=== PATIENT | female | born 1975 | race Caucasian/White ===

== ENCOUNTER 2025-02-22 01:55 | Day surgery (SDC) | payer OTHER, SELFPAY ==
[2025-02-10 14:03] VITALS: BMI 24.0
--- NOTE | 2025-02-10 14:11 | PC.NURSE ---
Report to the Outpatient Waiting Room, entrance under the green pavilion located off [facility], at time _0900_ on date _[id number]_. Planned Procedure Time: _1100_.? Time changes happen often and if your time is changed the preop area will call you the afternoon before. - You and your visitor will be asked to self-screen and do not enter if you have any COVID symptoms. Please call surgeon if you need to reschedule. - A mask is optional within the hospital at this time. Patients may have clear liquids (water, carbonated beverages, clear teas, apple juice) until 3 hours prior to surgery with a maximum of 20 ounces. - No food from midnight until time of surgery and no smoking, or chewing tobacco (or any form of nicotine). No chewing gum, candy or mints. Take only the following medications with a SIP of water on the morning of surgery: ___None DO NOT STOP ANY OF YOUR OTHER PRESCRIPTION MEDICATIONS PRIOR TO SURGERY EXCEPT THE FOLLOWING Hold all vitamins and supplements for 3 days per anesthesiologist. Medications to discontinue per physician Date to take last dose Please no make-up, nail vatican citizen, hairspray, perfume, deodorant, or body powder the day of surgery.? No jewelry (including any body piercings) or valuables the day of surgery, leave them at home.? Please take a shower or bath the night before, or the morning of, surgery with an antibacterial soap.? Wear comfortable, loose fitting clothing.? - Jewelry must be removed prior to entering the operating room.? Rings and piercings that are not removed may be cut off. - The hospital will not accept responsibility for valuables.? - Please leave all valuables, including medications, at home the day of surgery. If you are going home after surgery, a licensed cross country truck driver must drive you home.? - NO public transportation without another adult if you receive anesthesia. - We recommend that an adult stay with you for 24 hours following discharge. - We also recommend that you do not drive, make important decision, drink alcoholic beverages, or take any drugs that were not prescribed by your health care provider for at least 24 hours after your discharge time. Follow any additional instructions given to you from your surgeon. Telephone instructions given to __Janine__and asked if any additional questions and then verbalized understanding. Patient advised to call surgeon office or pre surgery nurse liaison [phone] if any additional questions.
--- OUTSIDE RECORDS SUMMARY | 2025-02-22 01:58 | XMS_ITS | Encounter Summary ---
Author Organization [facility] Address [address] [facility] [place] [address] Care Team Providers Care Curator Name Role Phone Tj Aguilar MD Primary Care Provider [phone] Reason for Visit * Reason Onset Date Comments MEDICATION REFILL 02/24/2019 Encounter Details Date Type Department Care Team (Late Contact Info) Description 02/24/2019 Refill [facility] [address] [place] [address] Noel Toscano MD [address] [place] [address] [address] [place] [id number] MEDICATION REFILL Social History Tobacco Use Types Packs/Day Years Used Date Smoking Tobacco: Former Cigarettes Q uit: 08/19/2003 Smokeless Tobacco: Never Alcohol Use Standard Drinks/Week Comments No 0 (1 standard drink = 0.6 oz pur e alcohol) Sex and Gender Information Value Date Recorded Sex Assigned at Female 03/26/2022 10:06 AM CDT Gender Identity Female 03/26/2022 10:06 AM CDT Sexual Orientation Straight 03/26/2022 10 :06 AM CDT documented as of this encounter Plan of Treatment Upcoming Encounters Date Type Department Care Team (Late Contact Info) Description 06/15/2025 2:40 PM CDT Office Visit [facility] - Rheumatology [address] [place] [address], [place] [id number] Noel Toscano MD [address] [place] [address] documented as of this encounter Visit Diagnoses Not on filedocumented in this encounter Care Teams Curator Relationship Specialty Start Date End Date Tj Aguilar MD [address] [place] [address] PCP - General Family Medicine 11/28/17 documented as of this encounter
--- OUTSIDE RECORDS SUMMARY | 2025-02-22 01:58 | XMS_ITS | Clinical Summary ---
Author Organization [facility] Care Team Providers Care Filter Operator Name Role Phone Unavailable Primary Care Provider Unavailabl e Social History Tobacco Use Types Packs/Day Years Used Date Smoking Tobacco: Never Assessed Comments Unknown Sex and Gender Information Value Date Recorded Sex Assigned at Not on file Legal Sex Female 12:24 AM CDT Gender Identity Not on file Sexual Orientation Not on file Plan of Treatment Health Maintenance Due Date Last Done Comments Hepatitis C Virus (HCV) Screening 1975 TdaP Immunization 1975 Hepatitis B Immunization (1 of 3 - 19+ 3-dose series) 1994 Pap Smear 1996 Cervical Cancer Screening (CCS) 2005 HPV/Cotest 2005 Discussion re Starting/Frequ ency of Mammograms 2015 Colonoscopy 2020 Colorectal Cancer Screening 2020 Influenza Immunization (#1) 2024 SARS-COV-2 Immunization ( season) 2024 Cologuard 2025 Immunochemical Fecal Occult Blood 2025 Respiratory Syncytial Virus (RSV) Immunization (Adult) (1 - 1-dose 75+ series) 2050 Meningococcal Immunization (ACWY) Aged Out No longer eligible based on patient's age to complete this topic Pneumococcal Immunization Combined Aged Out No longer eligible based on patient's age to complete this topic Rotavirus Immunization Aged Out No lo nger eligible based on patient's age to complete this topic
--- OUTSIDE RECORDS SUMMARY | 2025-02-22 01:58 | XMS_ITS | Clinical Summary ---
Author Organization [facility] Address [address] [place] [address] Phone Care Team Providers Care Oil Distributor Name Role Phone Unavailable Primary Care Provider Unavailabl e Family History Medical History Relation Name Comments Breast Cancer Neg Hx Ovarian Cancer Neg Hx Social History Tobacco Use Types Packs/Day Years Used Date Smoking Tobacco: Never Assessed Comments Unknown Sex and Gender Information Value Date Recorded Sex Assigned at Not on file Legal Sex Female 1:43 PM CDT Gender Identity Not on file Sexual Orientation Not on file Plan of Treatment Health Maintenance Due Date Last Done Comments PNEUMOCOCCAL VACCINE 0-49 YE ARS (1 of 2 - PCV) 1981 DTAP/TDAP/TD VACCINES (1 - Tdap) 1994 HEPATITIS B VACCINES (1 of 3 - 19+ 3-dose series) 1994 ZOSTER VACCINE (1 of 2) 1994 PAP SMEAR 1996 CERVICAL CANCER SCREENING 2005 HPV/Cotest 2005 PAP SMEAR 2005 BREAST CANCER SCREENING 05/30/2019 05/30/20 18, 05/30/2017, 05/05/2015 COLORECTAL SCREENING 2020 Colorectal Cancer Screening 2020 FIT-DNA Q 3 years 2020 FIT/FOBT Q 1 year 2020 Flex Sig/CT Colonography Q 5 years 2020 INFLUENZA VACCINE (#1) 2024 Procedures Procedure Name Priority Date/Time Associated Diagnosis Comments MAMMO SCREEN BILAT W OR WO CAD Routine 05/30/2018 3:03 PM CDT Breast cancer screening from Last 3 Months or Most Recently Relevant to Health Maintenance Results * MAMMO SCREEN BILAT W OR WO CAD (05/30/2018 3:03 PM CDT) Anatomical Region Laterality Modality Breast Bilateral Mammography Narrative 06/02/2018 2:53 PM CDT Bilateral digital screening mammogram with computer assisted diagnosis History: Annual screening exam. Findings: A bilateral screening mammogram was performed. Comparison is made to : 05/30/2017, and 05/05/2015 The breast parenchyma is heterogeneously dense which can obscure small masses. No new masses, suspicious calcifications, or areas of asymmetry or distortion are identified. CAD was utilized. Impression: Negative screening mammogram. Recommendation: Routine annual follow-up Overall Assessment: Birads Category 1: Negative Tj Aguilar MD MAMMO ORDERABLES Final Result from Last 3 Months or Most Recently Relevant to Health Maintenance Insurance [facility] [place] [address] [address]
--- OUTSIDE RECORDS SUMMARY | 2025-02-22 01:58 | XMS_ITS | Continuity of Care Document ---
Author Organization [facility] Address [address] [place] [address] [address] [place] [address] Phone Care Team Providers Care Machine Deicer Element Winder Name Role Phone Heard OD, Bereket Unavailable Unavailable Procedures Procedure Date Visual Field Examination(s) Eye Exam & Treatment Refraction Visual Field Examination(s) Eye Exam & Treatment Refraction Visual Field Examination(s) Eye Exam & Treatment Refraction Advance Directives Directive Yes / No Effective Date File Name No Information Encounters Encounter Description Practice Location Reason(s) For Visit Diagnoses Date Provider Providers Copied on Encounter [facility], [address] [place], [place] [address] [address], [place], [place], [id number], tel:[phone] [facility] No Information 7-201 0 Heard OD Bereket. [address], [address], [place], [address], [place]. tel:[phone] Referring Provider: Bereket Heard OD Kathi, [address], [place], [place], [facility]. tel:[phone] [facility], [address] [place] [address] [facility] [address], [place], [place], [id number], tel:[phone] [facility] No Information 2-201 0 Heard OD Bereket. [address], [place], [address], . tel:[phone] [facility] Eye [facility], [address], [place], [place], [id number], tel:[phone] [facility] No Information Sep-2 3-200 9 Krishnasamy Robel. [address], [place], [facility], [place]. tel:[phone] Referring Provider: Robel miranda, [facility] [address], [place], [place], [facility]. tel:[phone] [facility], [address] [place] [address] [address], [place], [place], [id number], tel:[phone] [facility] No Information 9-200 9 Krishnasamy Robel. [address] [facility] [address], [place], [facility], [place]. tel:[phone] [facility], [address], [place], [place], [id number], tel:[phone] [facility] No Information 2 1-200 8 Krishnasamy Robel. [facility] [address], [facility], [place]. tel:[phone] Referring Provider: Robel miranda, [facility] Corporate [facility] [address], [place], [facility]. tel:[phone] [facility] Eye [facility], [address] [place] [address] [address], [place], [place], [id number], [place] tel:[phone] [facility] No Information 0 6-200 8 Krishnasamy Robel. [facility] Corporate [address], [facility], [place]. tel:[phone] Family History Family Member Type Diagnosis Age At Onset No Information Payers Payer name Insurance type Covered libertarian ID Keena hackett(s) [facility] Commercial CI [id number] Social History Type Description Quantity Date Captured Comments Sex Female Smoking Status No Information Chief Complaint And Reason For Visit No Information Reason For Referral Reason For Referral No Information History Of Present Illness Encounter Date Complaint History Of Prese nt Illness No Information Functional Status Date Functional Assessmen t No Information Instructions Date Instruction Additional Infor mation No Information Assessments Type Assessment Date No Information Patient Care Teams Name Effective Dates (start - stop) Status Members No Information
--- OUTSIDE RECORDS SUMMARY | 2025-02-22 01:59 | XMS_ITS | Referral Summary ---
Author Organization [facility] [address] Address [address] [place] [address] Care Team Providers Care Order Processing Clerk Name Role Phone Cyndee Millard MD Primary Care Provider [phone] Allergies Active Allergy Reactions Criticality Noted Date Comments Morphine Nausea And Vomiting Low 08/21/2012 Venom-Honey Bee Swelling Medium 08/19/2012 Medications celecoxib (CeleBREX) 200 mg capsule TK 1 C PO BID 0 Active folic acid (FOLVITE) 1 mg tablet TK 1 T PO D 0 Active hydrOXYchloroQU INE (PLAQUENIL) 200 mg tablet TK 1 T PO QD 0 Active methotrexate 2.5 mg tablet TAKE 4 TABLETS BY MOUTH EVERY 7 DAYS 0 Active Nortrel 7/7/7, 28, 0.5/0.75/1 mg- 35 mcg per tablet TK 1 T PO QD 0 Active methylPREDNISol one (MEDROL DOSEPACK) 4 mg Dosepack Take as directed on package 1 packet 0 Active Additional Information Patient not taking.Reported on 09/28/2020 Active Problems No known active problems Social History Tobacco Use Types Packs/Day Years Used Date Smoking Tobacco: Former Cigarettes Q uit: 2001 Smokeless Tobacco: Never Personal Safety Answer Date Recorded Getting School Help Needed Not on file 02/15 Comments Unknown Sex and Gender Information Value Date Recorded Sex Assigned at Not on file 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 Gender Identity Not on file Sexual Orientation Not on file Last Filed Vital Signs Vital Sign Reading Time Taken Comments Blood Pressure - - Pulse - - Temperature 36.9 C (98.5 F) 09/28/2020 8:35 AM CDT Respiratory Rate - - Oxygen Saturation - - Inhaled Oxygen Concentration - - Weight 63.5 kg (140 lb) 09/28/2020 8:35 AM CDT Height 162.6 cm (5' 4 ) 09/28/2020 8:35 AM CDT Body Mass Index 24.03 09/28/2020 8:35 AM CDT Plan of Treatment Not on file Insurance [employer] Care Teams Order Processing Clerk Relationship Specialty Start Date End Date Cyndee Millard MD PCP - General Family Practice 08/18/20
--- OUTSIDE RECORDS SUMMARY | 2025-02-22 01:59 | XMS_ITS | Clinical Summary ---
Author Organization [address] Address [address] [place] [address] Care Team Providers Care Optometric Technologist Name Role Phone Cyndee Millard MD Primary Care Provider [phone]- [phone] Allergies Active Allergy Reactions Criticality Noted Date [...] 09/28/2020 Active Problems No known active problems Surgical History Surgery Date Site/Laterality Comments MYRINGOTOMY W/ TUBES SINUS SURGERY HAND TENDON SURGERY 12/02/2000 - 12/01/2001 Left HAND SURGERY Bilateral Medical History Medical History Date Comments Rheumatoid arthritis (HCC) Family History Medical History Relation Name Comments Asthma Father Cancer Father Diabetes Mother Relation Name Status Comments Father Mother Social History Tobacco Use Types Packs/Day Years Used Date Smoking Tobacco: Former Cigarettes Q uit: 2001 Smokeless Tobacco: Never Personal Safety Answer Date Recorded Getting School Help Needed Not on file 02/15 Comments Unknown Sex and Gender Information Value Date Recorded Sex Assigned at Not on file 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
--- OUTSIDE RECORDS SUMMARY | 2025-02-22 01:59 | XMS_ITS | Clinical Summary ---
Author Organization [facility] Address [address] [place] [address] Care Team Providers Care Test Desk Supervisor Name Role Phone Tj Aguilar MD Primary Care Provider [phone] Source Comments [facility],non-owned Affiliates and Associated Physician Practices is amultiple site organization consisting of ambulatory clinics and hospital sitesin [place], [place], [place] and [place]. This disclosure is being madepursuant to the Care Everywhere program and may not contain all information available regarding this patient. Last updated 18.[facility] Allergies Active Allergy Reactions Criticality Noted Date Comments Bee Swelling Medium 08/19/2012 Localized swelling. Morphine Nausea and/or Vomiting Low 08/21/2012 Medications * Be aware that medications may not be up to date on this document. Alwaysverify current medications with the patient. 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),Rheumatoid arthritis involving both hands with positive rheumatoid factor (HCC) TAKE 1 CAPSULE BY MOUTH TWICE DAILY FOR RHEUMATOID ARTHRITIS 180 capsule 3 12/15/2024 Active folic acid (Folvite) 1 MG tabletIndications:Rh eumatoid arthritis involving both hands with positive rheumatoid factor (HCC) TAKE 1 TABLET BY MOUTH DAILY 30 tablet 11 01/11/2025 Active Active Problems Problem Noted Date Diagnosed Date Rheumatoid arthritis involvi ng both hands with positive rheumatoid factor 09/15/2018 Chronic polyarticular juvenile rheumatoid arthri tis 09/15/2015 Encounter for therapeutic drug monitoring 2011 Encounters Date Type Department Care Team Description 02/05/2025 Orders Only [facility] - Rheumatology [address] [place] [phone] Noel Toscano MD Rheumatoid arthritis involving both hands with positive rheumatoid factor; Encounter for therapeutic drug level monitoring 01/11/2025 Refill [facility]ician [facility] - Rheumatology [address] [place] [phone] Noel Toscano MD Refill Request 12/15/2024 2:20 PM [employer] SUPERVISOR Office Visit [facility] - Rheumatology [address] [place] [phone] Noel Toscano MD Rheumatoid arthritis involving both hands with positive rheumatoid factor (Primary Dx); Encounter for therapeutic drug level monitoring 12/15/2024 Travel 12/15/2024 Refill [facility] - Rheumatology [address] [place] [phone] Noel Toscano MD Refill Request from Last 3 Months Immunizations Name Administration Dates Next Due Covid for; to (do) Centers primary monoval ent 12+ yr 0.3mL Purple cap 10/28/2021,02/17/2021,01/27/2021 INFLUENZA VACCINE 09/06/2021 TDAP, HISTORIC VACCINE 04/15/2018 Family History Medical History Relation Name Comments None Known Father None Known Mother Relation Name Status Comments Father Mother Social History Tobacco Use Types Packs/Day Years Used Date Smoking Tobacco: Former Cigarettes Q uit: 08/19/2003 Smokeless Tobacco: Never Tobacco Cessation:Counseling Given: Not Answered Alcohol Use Standard Drinks/Week Comments No 0 (1 standard drink = 0.6 oz pur e alcohol) PHQ-2 Answer Date Recorded Patient Health Questionnaire-2 Score 0 06/01/2024 Sex and Gender Information Value Date Recorded Sex Assigned at Female 03/26/2022 10:06 AM CDT Gender Identity Female 03/26/2022 10:06 AM CDT Sexual Orientation Straight 03/26/2022 10 :06 AM CDT Last Filed Vital Signs Vital Sign [place] Time Taken Comments Blood Pressure 102/66 12/15/2024 2:17 PM [employer] Pulse 72 12/15/2024 2:17 PM [employer] Temperature 36.3 C (97.3 F) 06/01/2024 3:04 PM CDT Respiratory Rate 16 12/15/2024 2:17 PM [employer] Oxygen Saturation 94% 12/15/2024 2:17 PM [employer] Inhaled Oxygen Concentration - - Weight 65.5 kg (144 lb 6.4 oz) 12/15/2024 2:17 P M [employer] Height 162.6 cm (5' 4 ) 12/15/2024 2:17 PM [employer] Body Mass Index 24.79 12/15/2024 2:17 PM [employer] Plan of Treatment Upcoming Encounters Date Type Department Care Team (Late st Contact Info) Description 06/15/2025 2:40 PM CDT Office Visit [facility] - Rheumatology [address] [place] [address], [place] [phone] Noel Toscano MD [address] [place] [address] [place] [phone] Health Maintenance Due Date Last Done Comments COLOGUARD (AGES 45-75) - COLON CA SCREENING 1975 COLON MONITORING 1975 COLONOSCOPY - COLON CA SCREENING 1975 CT COLONOGRAPHY - COLON CA SCREENING 1975 Colorectal Cancer Screening 1975 FIT - COLON CA SCREENING 1975 FLEX SIG - COLON CA SCREENING 1975 LIPID TESTING 1975 PAP SMEAR 1975 HIV SCREENING 1990 HEPATITIS C SCREENING 12/30/1992 HEPATITIS B VACCINE (1 of 3 - 19+ 3-dose series) 1994 COVID-19 VACCINE ( season) 2024 10/28/2021, 02/17/2021, 01/27/2021 INFLUENZA VACCINE (#1) 2024 09/06/2021 DEPRESSION SCREENING 12/02/2024 06/01/2024, 05/14/2023, 05/15/2022 PNEUMOCOCCAL VACCINE 50+ (1 of 1 - PCV) 2025 ZOSTER VACCINE (1 of 2) 2025 MAMMOGRAM 05/20/2026 05/20/2024, 05/02, 05/14/2023, Additional history exists DTAP/TDAP/TD VACCINES (2 - Td or Tdap) 04/15/2028 04/15/2018 HIB VACCINE Aged Out No longer eligi ble based on patient's age to complete this topic HPV VACCINE Aged Out No longer eligi ble based on patient's age to complete this topic MENINGOCOCCAL (Group B) VACCINE SHARED DECISION-MAKING Aged Out No longer eligible based on patient's age to complete this topic MENINGOCOCCAL GROUPS A/C/Y/W VACCINE Aged Out No longer eligible based on patient's age to complete this topic Procedures Procedure Name Priority Date/Time Associated Diagnosis Comments URINALYSIS W/MICROSCOPIC REFLEX TO CULTURE Routine 01/02/2025 8:26 AM [employer] Rheumatoid arthritis involving both hands with positive rheumatoid factor Encounter for therapeutic drug level monitoring ERYTHROCYTE SEDIMENTATION RATE Routine 01/02/2025 8:26 AM [employer] Rheumatoid arthritis involving both hands with positive rheumatoid factor Encounter for therapeutic drug level monitoring COMPREHENSIVE METABOLIC PANEL Routine 01/02/2025 8:26 AM [employer] Rheumatoid arthritis involving both hands with positive rheumatoid factor Encounter for therapeutic drug level monitoring C-REACTIVE PROTEIN Routine 01/02/2025 8: 26 AM [employer]OR Rheumatoid arthritis involving both hands with positive rheumatoid factor Encounter for therapeutic drug level monitoring CBC W/O DIFFERENTIAL Routine 01/02/2025 8:26 AM [employer] SU[employer]OR Rheumatoid arthritis involving both hands with positive rheumatoid factor Encounter for therapeutic drug level monitoring MAMMOGRAM Routine 05/20/2024 12:02 PM CDT from Last 3 Months or Most Recently Relevant to Health Maintenance Results * (ABNORMAL) URINALYSIS W/MICROSCOPIC REFLEX TO CULTURE (01/02/2025 8:26 AM [employer]ARCH [employer] SUPERVISOR) Specific [place] UA 1.020 1.005 - 1.030 [facility] INSURANCE BILL pH UA 5.5 5.0 - 7.5 [facility] BILL Color UA Yellow Yellow [facility] INSURANCE BILL Appearance Clear Clear [facility]UR[facility] BILL Leukocyte UA Trace(A) Negative [facility]UR[facility] BILL Protein UA Negative Negative/Tr yeison [facility] INSURANCE BILL Glucose UA Negative Negative [facility]UR[facility] BILL Ketone UA Negative Negative [facility]URANCE BILL Occult Blood Urine Negative Negative [facility] INSURANCE BILL Bilirubin UA Negative Negative [facility] INSURANCE BILL Urobilinogen 0.2 0.2 - 1.0 mg/dL [facility] INSURANCE BILL Nitrite UA Negative Negative [facility] INSURANCE BILL Microscopic Examination Urine See below: [facility] INSURANCE BILL Comment:Microscopic was sonia cated and was performed. Urinalysis Reflex Comment [facility] BILL Comment: This specimen has reflexed to a Urine Culture. Performed at: [address] [id number] Office Agent: Gamal Valdivia PhD, Phone: [phone] WBC UA 0-5 0 - 5 /hpf [facility] INSURANCE BILL RBC UA 0-2 0 - 2 /hpf [facility] INSURANCE BILL Epithelial Cells (non renal) 0-10 0 - 10 /hpf [facility] INSURANCE BILL Casts ua None seen None seen /lpf [facility] INSURANCE BILL Bacteria UA None seen None seen/Few [facility] INSURANCE BILL Comment: Performed at: [address] [id number] Office Agent: Gamal Valdivia PhD, Phone: [phone] Urine Culture Comprehensive Final report [facility] INSURANCE BILL Result 1 Comment [facility] INSURANCE BILL Comment: Mixed urogenital dean 7,000 Colonies/mL Urine URINE SPECIMEN OBTAINED BY CLEAN CATCH PROCEDURE / Unknown 01/02/2025 8:26 AM [employer]ARCH [employer] SUPERVISOR 01/02/2025 Narrative [facility] INSURANCE BILL - 01/05/2025 9:09 AM [employer] SUPER[employer]OR Performed at: [address] [id number] Office Agent: Gamal Valdivia PhD, Phone: [phone] Noel Toscano MD LAB - URINALYSIS ORD ERABLES [facility] INSURANCE BILL [address] [place] [address] * C-REACTIVE PROTEIN (01/02/2025 8:26 AM [employer]EARCH [employer] SUPERVISOR) C-Reactive Protein 2 0 - 10 mg/L [facility] INSURANCE BILL Blood BLOOD SPECIMEN / Unknown 01/02/2025 8:26 AM [employer]ARCH [employer] SUPER[employer]OR 01/02/2025 Narrative [facility] INSURANCE BILL - 01/03/2025 9:07 AM [employer] SUPERVISOR Performed at: - [address] [id number] Office Agent: Gamal Valdivia PhD, Phone: [phone] Noel Toscano MD LAB - CHEMISTRY ORDE RABLES Performing Organization Address [facility] Co de Phone Number [facility] INSURANCE BILL [address] [place] [address] * ERYTHROCYTE SEDIMENTATION RATE (01/02/2025 8:26 AM [employer] SUPERVISOR) Erythrocyte Sedimentation Rate Westergren 7 0 - 32 mm/hr [facility] INSURANCE BILL Blood BLOOD SPECIMEN / Unknown 01/02/2025 8:26 AM [employer]EARCH [employer] SUPERVISOR 01/02/2025 Narrative [facility] INSURANCE BILL - 01/03/2025 9:07 AM [employer]EARCH [employer] SUPERVISOR Performed at: [address] [id number] Office Agent: Gamal Valdivia PhD, Phone: [phone] Noel Toscano MD LAB - HEMATOLOGY ORD ERABLES Performing Organization Address City/[facility]/ZIP Co de Phone Number [facility] INSURANCE BILL [address] [place] [address] * CBC W/O DIFFERENTIAL (01/02/2025 8:26 AM [employer]EARCH [employer] SUPERVISOR) WBC 7.4 3.4 - 10.8 x10E3/uL [facility] INSURANCE BILL RBC 4.61 3.77 - 5.28 x10E6/uL [facility] INSURANCE BILL Hemoglobin 14.4 11.1 - 15.9 g/dL [facility] INSURANCE BILL Hematocrit 43.9 34.0 - 46.6 % [facility] INSURANCE BILL MCV 95 79 - 97 fL [facility] INSURANCE BILL MCH 31.2 26.6 - 33.0 pg [facility] INSURANCE BILL MCHC 32.8 31.5 - 35.7 g/dL [facility] INSURANCE BILL RDW 12.4 11.7 - 15.4 % [facility] INSURANCE BILL Platelet Count 281 150 - 450 x10E3/uL [facility] INSURANCE BILL Blood BLOOD SPECIMEN / Unknown 01/02/2025 8:26 AM [employer]EARCH [employer] SUPERVISOR 01/02/2025 Narrative [facility] INSURANCE BILL - 01/03/2025 7:07 AM [employer] SUPERVISOR Performed at: [address] [id number] Office Agent: Gamal Valdviia PhD, Phone: [phone] Noel Toscano MD LAB - HEMATOLOGY ORD ERABLES [facility] INSURANCE BILL [address] [place] [address] * COMPREHENSIVE METABOLIC PANEL (01/02/2025 8:26 AM [employer]EARCH [employer] SUPERVISOR) Glucose 94 70 - 99 mg/dL [facility] INSURANCE BILL BUN 15 6 - 24 mg/dL [facility] INSURANCE BILL Creatinine 0.75 0.57 - 1.00 mg/dL [facility] INSURANCE BILL eGFR by CKD-EPI 98 >59 mL/min/1.7 3 [facility] INSURANCE BILL BUN/Creatinine Ratio 20 9 - 23 [facility] INSURANCE BILL Sodium 140 134 - 144 mmol/L [facility] INSURANCE BILL Potassium 4.1 3.5 - 5.2 mmol/L [facility] INSURANCE BILL Chloride 101 96 - 106 mmol/L [facility] INSURANCE BILL CO2 25 20 - 29 mmol/L [facility] INSURANCE BILL Calcium 9.7 8.7 - 10.2 mg/dL [facility] INSURANCE BILL Protein Total 6.5 6.0 - 8.5 g/dL [facility] INSURANCE BILL Albumin 4.4 3.9 - 4.9 g/dL [facility] INSURANCE BILL Globulin Total 2.1 1.5 - 4.5 g/dL [facility] INSURANCE BILL Bilirubin Total 0.6 0.0 - 1.2 mg/dL [facility] INSURANCE BILL Alkaline Phosphatase 87 44 - 121 IU/L [facility] INSURANCE BILL AST 28 0 - 40 IU/L [facility] INSURANCE BILL ALT 19 0 - 32 IU/L [facility] INSURANCE BILL Blood BLOOD SPECIMEN / Unknown 01/02/2025 8:26 AM [employer]EARCH [employer] SUPERVISOR 01/02/2025 Narrative [facility] INSURANCE BILL - 01/03/2025 9:07 AM [employer] SUPERVISOR Performed at: 01 - [facility] [place] [id number] [place], [place] [id number] Office Agent: Gamal Valdivia PhD, Phone: [phone] Noel Toscano MD LAB - CHEMISTRY JARAD BARONE [facility] INSURANCE BILL [address] [place] [address] * MAMMOGRAM (05/20/2024 12:02 PM CDT) Anatomical Region Laterality Modality Other Historical Provider SCANNING ONLY from Last 3 Months or Most Recently Relevant to Health Maintenance Care Teams Test Desk Supervisor Relationship Specialty Start Date End Date Tj Aguilar MD [address] [place] [address] PCP - General Family Medicine 11/28/17
--- NOTE | 2025-02-22 07:30 | WPDHPUPDATE1 ---
History and Physical Update Update Date/Time: 02/22/25 07:30 History and Physical has been reviewed, including an updated exam of the patient. There are NO changes in the patient's condition. Risks, benefits, and alternatives have been discussed and questions answered. Patient agrees to proceed with procedure.
--- NOTE | 2025-02-22 07:30 | PM.HPGS ---
History of Present Illness History of Present Illness Consent: Risks, benefits, and alternatives have been discussed and questions answered. Patient agrees to proceed with procedure. Chief complaint: post menopausal bleeding Narrative: Elba Johnson is a 50 year old female with postmenopausal bleeding in June, August, and November of 2024. Patient stopped oral contraceptives in May of 2023 and had no bleeding until June of 2024. Labs are consistent also with menopause. It was recommended to undergo D&C hysteroscopy for further evaluation. Risks of infection, bleeding, and perforation are reviewed. Possible pathology was discussed. Patient voices understanding and agrees to proceed. Review of Systems Review of Systems: not repeated day of surgery; patient states no changes in status PMFSH Past Medical History Medical History Rheumatoid arthritis Migraine Visual Hypertriglyceridemia Surgical History Surgical History History of foot surgery right Hx of toe surgery History of hand surgery b/l hand joint fusion and replacement - right(2000) and left(2002) [place] teeth extracted Family History Family History Mother Diabetes mellitus Sibling Family history of hypercholesterolemia Grandparent Family history of arthritis Father Family history of throat cancer Social History Social History Years smoked: 8 Smoking status: Former smoker Tobacco type: cigarettes Second hand tobacco smoke exposure: No Smoking end date: 02/10/01 Alcohol intake: current Substance use: never Substance use type: does not use Lack of Transportation: No Lack of Food: Never True Current Housing: I Have Housing Concerned About Future Housing: No Difficulty Paying Gas/Electric Bills: No Difficulty Paying for Meds: No Currently Unemployed: No Education: Bachelor's Degree Difficulty w/ Childcare or Family Care: No Living arrangements: with family Gender identity (if verbalized by the patient): Female Spiritual care concerns: No Meds Home Medications and Allergies Home Medications ?Medication ?Instructions ?Recorded ?Confirmed ?Type celecoxib 200 mg capsule 200 mg PO BID 06/06/20 02/10/25 History folic acid 1 mg tablet 1 mg PO DAILY 06/06/20 02/10/25 History hydroxychloroquine 200 mg tablet 200 mg PO DAILY 06/06/20 02/10/25 History methotrexate sodium 2.5 mg tablet 10 mg PO WEEKLY 06/06/20 02/10/25 History multivitamin 1 tablet PO DAILY 06/06/20 02/10/25 History Allergies Allergy/AdvReac Type Severity Reaction Status Date / Time morphine Allergy Unknown Nausea Verified 02/10/25 14:01 Exam Const: General: healthy appearing and alert Orientation/consciousness: patient oriented x3 Resp: Effort & Inspection: normal respiratory effort GI: GI Palp: Yes Soft to palpation, No Tenderness to palpation present (GI) and No Palpable mass present : External Female Exam: normal external appearance Speculum Exam - Vagina: normal appearance of the vagina and normal vaginal discharge Speculum Exam - Cervix: normal appearance of the cervix Bimanual exam- vagina & uterus: uterine size normal and consistency normal Bimanual Exam- Adnexa, other: normal adnexae and No adnexal tenderness Neuro: General: patient oriented x3 Assessment and Plan Assessment and plan (1) Post-menopausal bleeding: Code(s): N95.0 - Postmenopausal bleeding Status: Acute Assessment and Plan: Plan to proceed with D&C hysteroscopy
[2025-02-22] MEDS: ACETAMINOPHEN 500 MG TABLET 1000 MG PO (09:16)
[2025-02-22 09:27] VITALS: BP 102/56; PULSE 74; RESP 16; TEMP 36.9; O2SAT 100
--- NOTE | 2025-02-22 10:19 | WPDANESEPPF ---
Anes - Initial Pre Proc Eval Procedure: Operation Date: 02/22/25 10:15 Proposed Procedures p Hysteroscopy Dilation and Curettage - Betina Lopez MD Date/Time: 02/22/25 10:19 Surgeon: Betina Lopez MD Pre Op Diagnosis: post menopausal bleeding Patient Data Age: 50 Gender: F Height: 1.63 m Weight: 64.9 kg Last Vital Signs Temp 98.4 F 02/22/25 09:27 Pulse 74 02/22/25 09:27 Resp 16 02/22/25 09:27 BP 102/56 L 02/22/25 09:27 Pulse Ox 100 02/22/25 09:27 O2 Del Method Room Air 02/22/25 09:27 Allergies Allergy/AdvReac Type Severity Reaction Status Date / Time morphine Allergy Unknown Nausea Verified 02/10/25 14:01 Home Medications ?Medication ?Instructions ?Recorded ?Confirmed ?Type celecoxib 200 mg capsule 200 mg PO BID 06/06/20 02/22/25 History folic acid 1 mg tablet 1 mg PO DAILY 06/06/20 02/22/25 History hydroxychloroquine 200 mg tablet 200 mg PO DAILY 06/06/20 02/10/25 History methotrexate sodium 2.5 mg tablet 10 mg PO WEEKLY 06/06/20 02/22/25 History multivitamin 1 tablet PO DAILY 06/06/20 02/22/25 History Patient hx anesthesia problems: none Family hx anesthesia problems: none Results Review: All pre-operative results and documents have been reviewed as part of the pre-operative evaluation. [facility] Past Medical History Medical History Rheumatoid arthritis Migraine Visual Hypertriglyceridemia Surgical History Surgical History History of foot surgery right Hx of toe surgery History of hand surgery b/l hand joint fusion and replacement - right(2000) and left(2002) [place] teeth extracted Family History Family History Mother Diabetes mellitus Sibling Family history of hypercholesterolemia Grandparent Family history of arthritis Father Family history of throat cancer Social History Social History Years smoked: 8 Smoking status: Former smoker Tobacco type: cigarettes Second hand tobacco smoke exposure: No Smoking end date: 02/10/01 Alcohol intake: current Substance use: never Substance use type: does not use Lack of Transportation: No Lack of Food: Never True Current Housing: I Have Housing Concerned About Future Housing: No Difficulty Paying Gas/Electric Bills: No Difficulty Paying for Meds: No Currently Unemployed: No Education: Bachelor's Degree Difficulty w/ Childcare or Family Care: No Living arrangements: with family Gender identity (if verbalized by the patient): Female Spiritual care concerns: No Anes - Eval Final PreProcedure Day of Procedure 02/22/25 10:19 Patient weight: normal Lungs: normal air movement Airway: Mallampati scale class II Neurological: alert and oriented Last oral intake: >/= 8 hours ASA classification: II Emergent: no Anesthetic plan: proceed Anesthesia type and monitoring: general GIVS and standard monitoring Results Review: All pre-operative results and documents have been reviewed as part of the pre-operative evaluation. Rheumatoid arthritis. Informed Consent: The patient's anesthetic plan and its attendant risks and benefits were discussed with the patient/family/POA. Questions were solicited and answers provided to the satisfaction of the patient/family/POA.
[2025-02-22 10:59] VITALS: BP 120/64; PULSE 72; RESP 14; O2SAT 100
[2025-02-22] MEDS: LACTATED RINGERS 1,000 ML 30 ML IV CONT (10:59)
--- NOTE | 2025-02-22 10:59 | W.PM.PROC2 ---
Procedure Note - Detailed Date of Procedure 02/22/25 Pre-op Diagnosis post menopausal bleeding Post-op Diagnosis Same Procedure Performed D&C hysteroscopy Surgeon Betina Lopez MD Anesthesia MAC Findings Uterus sounds to 6cm and appears grossly atrophic with no lesions. Description of Procedure The patient was taken to the operating room and placed under anesthesia in the dorsal lithotomy position. She was prepped and draped in the usual sterile fashion. [place] speculum was placed in the vagina and the cervix grasped on the anterior lip with a tenaculum. The uterus is sounded to 6cm. The hysteroscope was placed with no abnormalities noted it is removed. The sharp curette was used to curette the endometrium until a good uterine cry was noted in all areas. Minimal material was obtained consistent with the visual appearance. All instruments are removed. Sponge, needle, and instrument counts are correct per the OR staff. The patient was awakened from anesthesia and taken to recovery in stable condition. Estimated Blood Loss 5 Drains No Packing No Pathology Yes (Endometrial curettings) Complications No immediate complications Condition Stable
[2025-02-22 11:30] VITALS: BP 108/48; PULSE 67
[2025-02-22 12:00] VITALS: BP 105/58; PULSE 60; RESP 14
== END 2025-02-22 12:14 | disposition home or self-care (01) ==
PROVIDERS: PCP Family Medicine; Visit Provider Obstetrics & Gynecology Gynecology
PROC: 0U5B8ZZ Destruction of Endometrium, Via Natural or Artificial Opening Endoscopic (ICD-10-PCS; CPT 58563; principal; 2025-02-22 10:15)
DX: N85.8 Other specified noninflammatory disorders of uterus (principal); E78.1 Pure hyperglyceridemia; M06.9 Rheumatoid arthritis, unspecified; Z98.890 Other specified postprocedural states; Z87.891 Personal history of nicotine dependence; Z80.1 Family history of malignant neoplasm of trachea, bronchus and lung
CPT/HCPCS: 58558; 88305; A9270; J1885; J2003; J2250; J2405; J2704; J3010; J7120